=== PATIENT | male | born 1990 | race Caucasian/White ===

== ENCOUNTER 2017-08-14 08:56 | Inpatient (IN) | payer OTHER ==
[~2017-08-14] VITALS: Ht 172.7 cm; Wt 75.8 kg
[2017-08-14] MEDS ORDERED: NALOXONE 0.4 MG/ML, 1ML IVPush PRN ×2 (09:30→14:00)
[2017-08-14 10:01] LABS: HEMATOCRIT 43.3 % (39.2-51.8); HEMOGLOBIN 14.6 g/dL (13.7-18.0); WHITE BLOOD COUNT 12.4 x10^3/uL (3.4-10)
[2017-08-14 10:12] LABS: ASPARTATE AMINO TRANSFERASE 58 U/L (15-37); BLOOD UREA NITROGEN 14 mg/dL (7-18)
[2017-08-14 10:16] LABS: ACETAMINOPHEN < 2 mcg/mL (10-30)
[2017-08-14] MEDS ORDERED: NALOXONE 0.4 MG/ML, 1ML ONE ×2 (11:32)
[2017-08-14] MEDS ORDERED: NALOXONE 1 MG/ML, 2ML IVPush ONE (13:30)
[2017-08-14] MEDS ORDERED: ACETAMINOPHEN 325 MG TABLET PO PRN (14:00)
[2017-08-14] MEDS ORDERED: DOCUSATE 100 MG CAPSULE PO PRN (14:00)
[2017-08-14] MEDS ORDERED: ENOXAPARIN 40 MG/0.4 ML SQ SCH (14:00)
[2017-08-14] MEDS ORDERED: ONDANSETRON 2MG/ML, 2ML IVPush PRN (14:00)
[2017-08-14] MEDS ORDERED: PLEASE ENTER ALLERGIES MC SCH ×2 (14:30)
[2017-08-14 15:21] LABS: DAU SCREEN DISCLAIMER
[2017-08-14 18:37] VITALS: BP 105/65
[2017-08-14] MEDS ORDERED: SODIUM CHLORIDE FLUSH 10ML SYR IVF SCH (21:00)
[2017-08-15 00:57] VITALS: BP 109/62
[2017-08-15 07:06] VITALS: BP 98/61
== END 2017-08-15 09:05 | disposition home or self-care (01) | DRG 93 ==
LOC: EDBD 08:56 → ED 13:32 → EDIP 13:33 → SUATTDRO 13:44 → ED 13:45 → 4NOR 14:56
PROVIDERS: ADMIT Family Medicine; ATTEND Family Medicine
DX: G92 Toxic encephalopathy (principal); F11.10 Opioid abuse, uncomplicated; R53.83 Other fatigue; Z71.51 Drug abuse counseling and surveillance of drug abuser
CPT/HCPCS: 36415; 70450; 71010; 80053; 80307; 80329; 85025; 93005; 96374; J2405; G0479; G0480; J2310